=== PATIENT | female | born 1955 | race Caucasian/White ===

== ENCOUNTER 2017-11-09 22:58 | Inpatient (IN) | payer OTHER ==
[~2017-11-09] VITALS: Ht 160 cm; Wt 72.2 kg
[~2017-11-09 22:58] MED LIST: ERGO2000 PEG; ESCI20TA PEG; HYDR-3288 PO; LEVO112T2 PEG; LORA-474 PEG; OMEP40CA2 PEG; OXYC-392 PEG; XARE20TA PEG
--- NOTE | 2017-11-09 23:17 | PD ---
HPI Chief Complaint: BA Time Seen by Provider: 23:10 Travel History International Travel<30 days: No Contact w/Intl Traveler<30days: No Traveled to known affect area: No History of Present Illness HPI 62-year-old female with history of throat cancer, currently undergoing treatment , presents to emergency department under Maher act for psychiatric evaluation. Patient got into an argument with her . She has made threatening statements that she wants to kill has been. She has had this several times here in the emergency department. Patient reports chronic pain. She does have a PEG tube and trach in place. She denies suicidal ideations. She remained patently states that she wants to kill her . She does not report a plan. Denies illicit drug use. She has no acute other acute medical needs at this time. PFSH Past Medical History Hx Anticoagulant Therapy: Yes (XARELTO) Anxiety: Yes Depression: Yes Cancer: Yes (THROAT) Chemotherapy: Yes (6 MONTHS AGO) GERD: Yes Respiratory: Yes (TRACH) Immunizations Current: Yes Thyroid Disease: Yes Past Surgical History Abdominal Surgery: Yes (PEG TUBE) Cholecystectomy: Yes Endocrine Surgery: Yes (THYROID, PARATHYROID) Hysterectomy: Yes Tonsillectomy: Yes Other Surgery: Yes (TRACH, VOICE BOX) Social History Alcohol Use: No Tobacco Use: No Substance Use: No Allergies-Medications (Allergen,Severity, Reaction): Coded Allergies: Penicillins (Verified Allergy, Severe, 11/09/17) pentazocine (Verified Allergy, Severe, 11/09/17) Reported Meds & Prescriptions Reported Meds & Active Scripts Active [place] (Hydrocodone-Acetaminophen) 7.5-325 mg Tab 1 Tab PO Q6H PRN Reported Xanax (Alprazolam) 1 Mg Tab 1 Mg PO Q8H PRN Robinul Inj (Glycopyrrolate) 0.2 Mg/Ml Inj 1 Mg PEG Levothyroxine (Levothyroxine Sodium) 100 Mcg Tab 100 Mcg PO DAILY Cefazolin Inj (Cefazolin Sodium/Dextrose) 2 Gm/50 Ml Bagp 2 Gm IV Q8H Ativan (Lorazepam) 1 Mg Tab 1 Mg PEG Q8H PRN Oxycodone (Oxycodone HCl) 5 Mg Tab 5 Mg PEG BID PRN Vitamin D2 (Ergocalciferol) 2,000 Unit Tab 5,000 Units PEG DAILY Escitalopram (Escitalopram Oxalate) 20 Mg Tab 20 Mg PEG HS Omeprazole 40 Mg Cap 40 Mg PEG BID Xarelto (Rivaroxaban) 20 Mg Tab 20 Mg PEG DAILY Review of Systems Except as stated in HPI: all other systems reviewed are Neg Physical Exam Narrative GENERAL: Chronically ill-appearing female patient, in no acute distress. SKIN: Focused skin assessment warm/dry. Erythematous with scabbed Wounds over the anterior chest. HEAD: Atraumatic. Normocephalic. EYES: Pupils equal and round. No scleral icterus. No injection or drainage. ENT: No nasal bleeding or discharge. Mucous membranes pink and moist. NECK: Trachea midline. Tracheostomy in place. Coarse breath sounds. No JVD. CARDIOVASCULAR: Tachycardic rate and rhythm. RESPIRATORY: No accessory muscle use. Coarse to auscultation. Breath sounds equal bilaterally. Right upper chest port in place. GASTROINTESTINAL: Abdomen soft, non-tender, nondistended. Hepatic and splenic margins not palpable. PEG tube in place. MUSCULOSKELETAL: No obvious deformities. No clubbing. No cyanosis. No edema. NEUROLOGICAL: Awake and alert. No obvious cranial nerve deficits. Motor grossly within normal limits. Normal speech. Data Data Last Documented VS Vital Signs Date Time Temp Pulse Resp B/P (MAP) Pulse Ox O2 Delivery O2 Flow Rate FiO2 11/09/17 23:45 98 21 11/09/17 23:34 18 11/09/17 23:31 98.0 83 120/59 (79) Orders Orders Complete Blood Count With Diff (11/09/17 23:17) Basic Metabolic Panel (Bmp) (11/09/17 23:17) Psych Screen (11/09/17 23:17) Drug Screen, Random Urine (11/09/17 23:17) Alcohol (Ethanol) (11/09/17 23:17) Chest, Single Ap (11/10/17 ) Lorazepam (Ativan) (11/10/17 02:00) Oxycodone Liq (Roxicodone Intensol Liq) (11/10/17 02:30) Lorazepam (Ativan) (11/10/17 02:45) Lorazepam Inj (Ativan Inj) (11/10/17 02:45) Hydroxyzine Hcl (Atarax) (11/10/17 02:45) Diphenhydramine (Benadryl) (11/10/17 02:45) Diphenhydramine Inj (Benadryl Inj) (11/10/17 02:45) Diphenhydramine (Benadryl) (11/10/17 02:45) Diphenhydramine Inj (Benadryl Inj) (11/10/17 02:45) Trazodone (Desyrel) (11/10/17 02:45) Acetaminophen (Tylenol) (11/10/17 02:45) Magnesium Hydroxide Liq (Milk Of Magnesi (11/10/17 02:45) Al-Mag Hy-Si 40-40-4 Mg/Ml Liq (Mag-Al P (11/10/17 02:45) Nicotine 21 Mg Patch.24 Hr (Habitrol 21 (11/10/17 09:00) Remove Old Patch (11/10/17 21:00) Rivaroxaban (Xarelto) (11/10/17 09:00) Lansoprazole Odt (Prevacid Odt) (11/10/17 09:00) Ergocalciferol (Drisdol) (11/10/17 09:00) Escitalopram (Lexapro) (11/10/17 21:00) Levothyroxine (Synthroid) (11/10/17 07:00) Oxycodone (Roxicodone) (11/10/17 03:00) Admit Order (Ed Use Only) (11/10/17 02:54) Admit To Inpatient Psych (11/10/17 ) Vital Signs (Adult) GWEN.Q12H.E (11/10/17 02:54) Activity Oob Ad Deann (11/10/17 02:54) Level Of Observation (Psych) (11/10/17 02:54) Diet Regular Basic (11/10/17 Breakfast) Complete Blood Count With Diff (11/11/17 06:00) Basic Metabolic Panel (Bmp) (11/11/17 06:00) Thyroid Stimulating Hormone (11/11/17 06:00) Lipid Profile (11/11/17 06:00) Hemoglobin (Hgb) A1c (11/11/17 06:00) Consult Hospitalist (11/10/17 ) Labs Laboratory Tests Test 11/09/17 23:30 White Blood Count 6.1 TH/MM3 Red Blood Count 3.92 MIL/MM3 Hemoglobin 11.1 GM/DL Hematocrit 31.9 % Mean Corpuscular Volume 81.3 FL Mean Corpuscular Hemoglobin 28.3 PG Mean Corpuscular Hemoglobin Concent 34.8 % Red Cell Distribution Width 15.3 % Platelet Count 238 TH/MM3 Mean Platelet Volume 9.2 FL Neutrophils (%) (Auto) 60.9 % Lymphocytes (%) (Auto) 25.4 % Monocytes (%) (Auto) 9.5 % Eosinophils (%) (Auto) 3.2 % Basophils (%) (Auto) 1.0 % Neutrophils # (Auto) 3.7 TH/MM3 Lymphocytes # (Auto) 1.5 TH/MM3 Monocytes # (Auto) 0.6 TH/MM3 Eosinophils # (Auto) 0.2 TH/MM3 Basophils # (Auto) 0.1 TH/MM3 CBC Comment DIFF FINAL Differential Comment Blood Urea Nitrogen 14 MG/DL Creatinine 0.95 MG/DL Random Glucose 85 MG/DL Calcium Level 8.9 MG/DL Sodium Level 142 MEQ/L Potassium Level 3.3 MEQ/L Chloride Level 110 MEQ/L Carbon Dioxide Level 21.3 MEQ/L Anion Gap 11 MEQ/L Estimat Glomerular Filtration Rate 60 ML/MIN Urine Opiates Screen NEG Urine Barbiturates Screen NEG Urine Amphetamines Screen NEG Urine Benzodiazepines Screen POS Urine Cocaine Screen NEG Urine Cannabinoids Screen NEG Ethyl Alcohol Level LESS THAN 3 MG/DL MDM Medical Decision Making Medical Screen Exam Complete: Yes Emergency Medical Condition: Yes Medical Record Reviewed: Yes Differential Diagnosis Adjustment reaction disorder versus mood disorder versus personality disorder Narrative Course 62-year-old female presents to emergency department under Maher act for psychiatric evaluation. Patient appears without distress. She is obviously agitated. Patient does mouth words in I am able to communicate with her however she does not make any audible the waist due to a tracheostomy in place. Patient is treated for pain and anxiety. Lab work is without acute concern. She is medically cleared to undergo psychiatric screening for further evaluation and disposition. Mental health screening discussed with the patient. Psychiatric screen ordered. Diagnosis Primary Impression: Adjustment reaction Qualified Codes: F43.25 - Adjustment disorder with mixed disturbance of emotions and conduct Condition: Stable GraceNataliia phelps PIETRO Nov 09, 2017 23:17
[2017-11-09 23:31] VITALS: BP 120/59; PULSE 83; RESP 16; TEMP 98; O2SAT 100
[2017-11-09 23:35] LABS: AUTOMATED NEUTROPHIL # 3.7 TH/MM3 (1.8-7.7); BASOPHIL # 0.1 TH/MM3 (0-0.2); EOSINOPHIL # 0.2 TH/MM3 (0-0.4); EOSINOPHIL % 3.2 % (0.0-4.0); HEMATOCRIT 31.9 % (35.0-46.0); HEMOGLOBIN 11.1 GM/DL (11.6-15.3); LYMPH % 25.4 % (9.0-44.0); LYMPHOCYTE # 1.5 TH/MM3 (1.0-4.8); MEAN CELL VOLUME 81.3 FL (80.0-100.0); MEAN CORPUSCULAR HEMOGLOBIN 28.3 PG (27.0-34.0); MEAN CORPUSCULAR HGB CONC 34.8 % (32.0-36.0); MEAN PLATELET VOLUME 9.2 FL (7.0-11.0); MONO % 9.5 % (0.0-8.0); MONOCYTE # 0.6 TH/MM3 (0-0.9); NEUT % 60.9 % (16.0-70.0); PLATELET COUNT 238 TH/MM3 (150-450); RED BLOOD COUNT 3.92 MIL/MM3 (4.00-5.30); RED CELL DISTRIBUTION WIDTH 15.3 % (11.6-17.2); WHITE BLOOD COUNT 6.1 TH/MM3 (4.0-11.0)
[2017-11-09 23:45] VITALS: O2SAT 98
[2017-11-09 23:51] LABS: BICARBONATE 21.3 MEQ/L (21.0-32.0); BLOOD UREA NITROGEN 14 MG/DL (7-18); CALCIUM 8.9 MG/DL (8.5-10.1); CHLORIDE 110 MEQ/L (98-107); CREATININE 0.95 MG/DL (0.50-1.00); GLOMERULAR FILTRATION RATE 60 ML/MIN (>89); GLUCOSE,RANDOM 85 MG/DL (74-106); SODIUM (NA) 142 MEQ/L (136-145)
[2017-11-10] MEDS ORDERED: LEVO100T5 PO (00:19)
[2017-11-10] MEDS ORDERED: CEFA2SOL IV (00:19)
[2017-11-10] MEDS ORDERED: XANA1TAB2 PO (00:19)
[2017-11-10] MEDS ORDERED: [UNRECOGNIZED DRUG - CODE] PEG (00:19)
--- NOTE | 2017-11-10 00:59 | RADRPT ---
EXAM DATE/TIME: 11/10/2017 00:29 [place] COMPARISON: CHEST SINGLE AP, October 30, 2017, 14:08. INDICATIONS : Cough. MEDICAL HISTORY : Cardiovascular disease. SURGICAL HISTORY : Tracheostomy ENCOUNTER: Initial ACUITY: 1 day PAIN SCORE: 0/10 LOCATION: Bilateral chest FINDINGS: Single AP view of the chest. Right-sided [id number] remains in place. Chronic scarring at the righ t lung apex. The lungs are otherwise clear. Cardiomediastinal silhouette within normal limits. No ajay dence of pleural effusion or pneumothorax. CONCLUSION: No acute cardiopulmonary disease identified. Lanre Bender MD on November 10, 2017 at 0:57 Board Certified Radiologist. This report was verified electronically.
[2017-11-10] MEDS ORDERED: LORazepam 1 MG TAB PO ONE (02:00)
[2017-11-10] MEDS ORDERED: oxyCODONE HCL ORAL CONC 5 MG/0.25 ML SYRINGE PO ONE (02:30)
[2017-11-10] MEDS ORDERED: LORazepam 2 MG/ML VIAL IM PRN (02:45)
[2017-11-10] MEDS ORDERED: diphenhydrAMINE HCL 50 MG/ML VIAL IM PRN (02:45)
[2017-11-10] MEDS ORDERED: diphenhydrAMINE HCL 50 MG/ML VIAL - HS PRN IM (02:45)
[2017-11-10] MEDS ORDERED: ALUMINUM/MAGNESIUM/SIMETH 30 ML CUP PO PRN (02:45)
[2017-11-10] MEDS ORDERED: diphenhydrAMINE HCL 50 MG CAP - HS PRN PO (02:45)
[2017-11-10] MEDS ORDERED: hydrOXYzine HCL 50 MG TAB PO PRN (02:45)
[2017-11-10] MEDS ORDERED: ACETAMINOPHEN 325 MG TAB PO PRN (02:45)
[2017-11-10] MEDS ORDERED: diphenhydrAMINE HCL 50 MG CAP PO PRN (02:45)
[2017-11-10] MEDS ORDERED: MAGNESIUM HYDROXIDE SUSP 30 ML CUP PO PRN (02:45)
[2017-11-10 03:30] VITALS: BP 125/65; PULSE 62; TEMP 98.2; O2SAT 97
[2017-11-10 05:44] VITALS: BP 111/68; PULSE 78; RESP 18; TEMP 98.1; O2SAT 94
[2017-11-10] MEDS ORDERED: LEVOTHYROXINE SODIUM 100 MCG TAB PO SCH (07:00)
[2017-11-10] MEDS ORDERED: ERGOCALCIFEROL (VIT D2) 50,000 UNIT CAP PEG SCH (09:00)
[2017-11-10] MEDS ORDERED: RIVAROXABAN 20 MG TAB PEG SCH (09:00)
[2017-11-10] MEDS: LANSOPRAZOLE SOLUTAB 30 MG TAB PEG SCH ×2 (09:00→20:01)
[2017-11-10] MEDS: NICOTINE 21 MG/24 HR PATCH T-DERMAL SCH (09:00)
[2017-11-10] MEDS ORDERED: RESP: ALBUTEROL 2.5 MG/IPRATROPIUM 0.5 MG NEB (PRN) NEB (12:00)
[2017-11-10] MEDS: RESP: ALBUTEROL 2.5 MG/IPRATROPIUM 0.5 MG NEB (SCH) NEB ×3 (12:00→19:53)
[2017-11-10] MEDS ORDERED: LORazepam 1 MG TAB PEG PRN (12:15)
[2017-11-10] MEDS ORDERED: ALPRAZolam 1 MG TAB PO PRN (12:15)
[2017-11-10] MEDS ORDERED: ceFAZolin 2 GM/50 ML BAG IV SCH (12:15)
--- NOTE | 2017-11-10 13:01 | HHI.HP ---
Provisional Diagnosis Admission Date Nov 10, 2017 at 02:59 [place] I. Adjustment disorder with mixed disturbance of emotion and conduct Certification of Person's Competence To Provide Express and Informed Consent I have personally examined Jluis Simon , a person being served at [facility] on, Nov 10, 2017 12:54. Express and informed consent means consent voluntarily given in writing, by a competent person, after sufficient explanation and disclosure of the subject matter involved to enable the person to make a knowing and willful decision without any element of force, fraud, deceit, duress, or other form of constraint or coercion. This person is 18 years of age or older, is not now known to be incompetent to consent to treatment with a guardian advocate, and does not have a health care surrogate or proxy currently making medical treatment decisions. I have found this person to be one of the following: [x] Competent to provide express and informed consent, as defined above, for voluntary admission to this facility and is competent to provide express and informed consent for treatment. He/she has the consistent capacity to make well reasoned, willful, and knowing decisions concerning his or her medical or mental health treatment. The person fully and consistently understands the purpose of the admission for examination/placement and is fully capable of personally exercising all rights assured [place] Incompetent to provide express and informed consent to voluntary admission, and this is incompetent to provide express and informed consent to treatment. The person must be transferred to involuntary status and a petition for a guardian advocate filed with the Circuit Court. [] Refusing to provide express and informed consent to voluntary admission but is competent to provide express and informed consent for treatment. The person must be discharged or transferred to involuntary status. Form shall be completed within 24 hours of a person's arrival at the receiving facility and filed in the clinical record of each person: 1. Admitted on a voluntary basis 2. Permitted to provide express and informed consent to his/her own treatment 3. Allowed to transfer from involuntary to voluntary status 4. Prior to permitting a person to consent to his or her own treatment after having been previously found incompetent to consent to treatment. History of Present Illness Capacity: Has Capacity HPI 62-year-old female inappropriately Maher acted by police after allegedly making threats to kill her . Patient recently underwent treatment for throat cancer. She has a tracheostomy and a plugged in her throat, with increasing secretions and possible infection. reportedly wanted the patient to come to the hospital yesterday and it patient did not want to. reportedly told her to "hit the fuck out" of their house. Patient reportedly told him "Fucks you". She may have told him she felt like killing him but she is basically unable to speak because of her tracheostomy. called the police who handcuffed her, Maher acted her while she was sitting watching television. At this time she denies any suicidal or homicidal ideation, plan or intent. She has no psychotic symptoms and no cognitive deficits. She is verbally sherita for safety. She is willing to be treated by the physical medicine doctors. She does not meet criteria for Maher act and she was allowed by this physician to sign in voluntarily. Review of Systems Except as stated in HPI: all other systems reviewed are Neg Past Psych History Psychological trauma history Denied Violence risk - others (6 mos) Minimal Violence risk - self (6 mos) Minimal Substance Abuse History Drugs/Alcohol past 12 months Denied Past Family Social History Coded Allergies: Penicillins (Verified Allergy, Severe, 11/09/17) pentazocine (Verified Allergy, Severe, 11/09/17) Active Scripts Hydrocodone-Acetaminophen ([place]) 7.5-325 mg Tab, 1 TAB PO Q6H Y for PAIN, #15 TAB 0 Refills Prov:Dion Parisi MD 10/30/17 Reported Medications Alprazolam (Xanax) 1 Mg Tab, 1 MG PO Q8H Y for ANXIETY, TAB 0 Refills 11/10/17 Glycopyrrolate Inj (Robinul Inj) 0.2 Mg/Ml Inj, 1 MG PEG 11/10/17 Levothyroxine (Levothyroxine) 100 Mcg Tab, 100 MCG PO DAILY for Thyroid, #30 TAB 0 Refills 11/10/17 Cefazolin Inj (Cefazolin Inj) 2 Gm/50 Ml Bagp, 2 GM IV Q8H for Infection, BAG 0 Refills 11/10/17 Lorazepam (Ativan) 1 Mg Tab, 1 MG PEG Q8H Y for ANXIETY AND/OR AGITATION, TAB 0 Refills 10/30/17 Oxycodone (Oxycodone) 5 Mg Tab, 5 MG PEG BID Y for PAIN, TAB 0 Refills 10/30/17 Ergocalciferol (Vitamin D2) 2,000 Unit Tab, 5000 UNITS PEG DAILY for Nutritional Supplement, TAB 0 Refills 10/30/17 Escitalopram (Escitalopram) 20 Mg Tab, 20 MG PEG HS, #30 TAB 0 Refills 10/30/17 Omeprazole (Omeprazole) 40 Mg Cap, 40 MG PEG BID, #30 CAP 0 Refills 10/30/17 Rivaroxaban (Xarelto) 20 Mg Tab, 20 MG PEG DAILY for Blood Clot Prevention, TAB 0 Refills 10/30/17 Discontinued Reported Medications Levothyroxine (Levothyroxine) 112 Mcg Tab, 112 MCG PEG DAILY for Thyroid, #30 TAB 0 Refills 10/30/17 Current Medications Medications (Trade) Dose Ordered Sig/Abena Route Start Time Stop Time Status Last Admin (Ativan) 1 mg Q6H PRN PO 11/10/17 02:45 (Ativan Inj) 1 mg Q6H PRN IM 11/10/17 02:45 (Atarax) 50 mg Q6H PRN PO 11/10/17 02:45 (Benadryl) 50 mg Q6H PRN PO 11/10/17 02:45 (Benadryl Inj) 50 mg Q6H PRN IM 11/10/17 02:45 (Benadryl) 50 mg HS PRN PO 11/10/17 02:45 (Benadryl Inj) 50 mg HS PRN IM 11/10/17 02:45 (Desyrel) 50 mg HS PRN PO 11/10/17 02:45 (Tylenol) 650 mg Q4H PRN PO 11/10/17 02:45 (Milk Of Magnesia Liq) 30 ml DAILY PRN PO 11/10/17 02:45 (Mag-Al Plus Susp Liq) 30 ml Q6H PRN PO 11/10/17 02:45 (Habitrol 21 Mg Patch.24 Hr) 1 patch DAILY T-DERMAL 11/10/17 09:00 Miscellaneous Information 1 HS T-DERMAL 11/10/17 21:00 (Prevacid Odt) 30 mg BID PEG 11/10/17 09:00 (Duoneb Neb) 1 ampule Q4HR WHILE AWAKE NEB NEB 11/10/17 12:00 (Duoneb Neb) 1 ampule Q2HR NEB PRN NEB 11/10/17 12:00 (Lexapro) 20 mg HS PEG 11/10/17 21:00 ([place] 7.5-325 Mg) 1 tab Q6H PRN PO 11/10/17 12:15 (Synthroid) 100 mcg DAILY@0600 PO 11/11/17 06:00 (Roxicodone) 5 mg BID PRN PEG 11/10/17 12:15 (Xarelto) 20 mg DAILY PEG 11/11/17 09:00 (Calciferol Liq) 5,000 units DAILY PEG 11/11/17 09:00 (Levsin Liq) 0.125 mg Q4H PRN PO 11/10/17 12:15 Family Psych History Unable to answer Social History Difficulty answering questions. Patient does not have a history of alcohol or substance abuse. She is and she and her have lived in the same home for years. Patient's Strengths (min. 2) Cognition intact and patient has access to healthcare. Physical Exam GENERAL: SKIN: Warm and dry. HEAD: Normocephalic. EYES: No scleral icterus. No injection or drainage. NECK: Supple, trachea midline. No JVD or lymphadenopathy. CARDIOVASCULAR: Regular rate and rhythm without murmurs, gallops, or rubs. RESPIRATORY: Breath sounds equal bilaterally. No accessory muscle use. GASTROINTESTINAL: Abdomen soft, non-tender, nondistended. MUSCULOSKELETAL: No cyanosis, or edema. BACK: Nontender without obvious deformity. No CVA tenderness. Vital Signs Vital Signs Date Time Temp Pulse Resp B/P (MAP) Pulse Ox O2 Delivery O2 Flow Rate FiO2 11/10/17 05:44 98.1 78 18 111/68 (82) 94 11/09/17 23:45 21 Lab Results Test 11/09/17 23:30 White Blood Count 6.1 TH/MM3 Red Blood Count 3.92 MIL/MM3 Hemoglobin 11.1 GM/DL Hematocrit 31.9 % Mean Corpuscular Volume 81.3 FL Mean Corpuscular Hemoglobin 28.3 PG Mean Corpuscular Hemoglobin Concent 34.8 % Red Cell Distribution Width 15.3 % Platelet Count 238 TH/MM3 Mean Platelet Volume 9.2 FL Neutrophils (%) (Auto) 60.9 % Lymphocytes (%) (Auto) 25.4 % Monocytes (%) (Auto) 9.5 % Eosinophils (%) (Auto) 3.2 % Basophils (%) (Auto) 1.0 % Neutrophils # (Auto) 3.7 TH/MM3 Lymphocytes # (Auto) 1.5 TH/MM3 Monocytes # (Auto) 0.6 TH/MM3 Eosinophils # (Auto) 0.2 TH/MM3 Basophils # (Auto) 0.1 TH/MM3 CBC Comment DIFF FINAL Differential Comment Blood Urea Nitrogen 14 MG/DL Creatinine 0.95 MG/DL Random Glucose 85 MG/DL Calcium Level 8.9 MG/DL Sodium Level 142 MEQ/L Potassium Level 3.3 MEQ/L Chloride Level 110 MEQ/L Carbon Dioxide Level 21.3 MEQ/L Anion Gap 11 MEQ/L Estimat Glomerular Filtration Rate 60 ML/MIN Urine Opiates Screen NEG Urine Barbiturates Screen NEG Urine Amphetamines Screen NEG Urine Benzodiazepines Screen POS Urine Cocaine Screen NEG Urine Cannabinoids Screen NEG Ethyl Alcohol Level LESS THAN 3 MG/DL Mental Status Examination Appearance: Appropriate Consciousness: Alert Orientation: x4 Motor Activity: Normal gait Speech: Other Language: Adequate Fund of Knowledge: Adequate Attention and Concentration: Adequate Memory: Unremarkable Mood: Appropriate Affect: Appropriate Thought Process & Associations: Intact Thought Content: Appropriate Hallucination Type: None Delusion Type: None Suicidal Ideation: No Suicidal Plan: No Suicidal Intention: No Homicidal Ideation: No Homicidal Plan: No Homicidal Intention: No Insight: Adequate Judgment: Adequate Assessment & Plan Problem List: (1) Adjustment disorder with mixed disturbance of emotions and conduct ICD Codes: F43.25 - Adjustment disorder with mixed disturbance of emotions and conduct Assessment & Plan Estimated LOS: days. Patient status to be changed from Maher act voluntary. She may be released from psychiatric services when she is medically cleared. Brett Higginbotham MD Nov 10, 2017 13:00
[2017-11-10] MEDS: HYOSCYAMINE SOLN 0.125 MG/ML 15 ML BTL PO PRN (14:39)
--- NOTE | 2017-11-10 15:14 | PD.CONS ---
HPI Service [facility] Hospitalists Consult Requested By Dr Santiago psych Reason for Consult medical management Primary Care Physician Unknown Diagnoses: History of Present Illness 62-year-old female with history of throat cancer, finished chemo 6 month ago, with chronic respiratory failure has trach on, DVT on xarelto, hypothyroidism , GERD, presents to emergency department under Maher act for psychiatric evaluation. Patient got into an argument with her . She has made threatening statements that she wants to kill has been. She has had this several times here in the emergency department. Patient reports chronic pain. She does have a PEG tube and trach in place. She denies suicidal ideations. She remained patently states that she wants to kill her . She does not report a plan. Denies illicit drug use. She has no acute other acute medical needs at this time. She is very pleasant ayt this time. Kamitierra shayne noted with some secretions in the morning but able to lear secretions. No sob, cp, n/v/d/ c. Patient says she has been ecently to [facility] and was discharged home on IV abx cefazolin Q8HRS for blood infection with staph aureus. Will obtain records. Review of Systems Except as stated in HPI: all other systems reviewed are Neg Past Family Social History Allergies: Coded Allergies: Penicillins (Verified Allergy, Severe, 11/09/17) pentazocine (Verified Allergy, Severe, 11/09/17) Past Medical History Throat cancer, with chronic respiratory failure with trach Hypothyroidism GERD DVT on xarelto Past Surgical History PEG TUBE THYROID, PARATHYROID SURGERY TRACHEOSTOMY, VOICE BOX Reported Medications Reported Meds & Active Scripts Active [place] (Hydrocodone-Acetaminophen) 7.5-325 mg Tab 1 Tab PO Q6H PRN Reported Xanax (Alprazolam) 1 Mg Tab 1 Mg PO Q8H PRN Robinul Inj (Glycopyrrolate) 0.2 Mg/Ml Inj 1 Mg PEG Levothyroxine (Levothyroxine Sodium) 100 Mcg Tab 100 Mcg PO DAILY Cefazolin Inj (Cefazolin Sodium/Dextrose) 2 Gm/50 Ml Bagp 2 Gm IV Q8H Ativan (Lorazepam) 1 Mg Tab 1 Mg PEG Q8H PRN Oxycodone (Oxycodone HCl) 5 Mg Tab 5 Mg PEG BID PRN Vitamin D2 (Ergocalciferol) 2,000 Unit Tab 5,000 Units PEG DAILY Escitalopram (Escitalopram Oxalate) 20 Mg Tab 20 Mg PEG HS Omeprazole 40 Mg Cap 40 Mg PEG BID Xarelto (Rivaroxaban) 20 Mg Tab 20 Mg PEG DAILY Family History Reviewed. Healthy family, no cancer in her family Social History DENEIS ETOH USE, TOBACCO USE OR ILLICIT DRUG USE Physical Exam Vital Signs Vital Signs Date Time Temp Pulse Resp B/P (MAP) Pulse Ox O2 Delivery O2 Flow Rate FiO2 11/10/17 05:44 98.1 78 18 111/68 (82) 94 11/10/17 03:30 98.2 62 125/65 (85) 97 11/09/17 23:45 98 21 11/09/17 23:34 18 11/09/17 23:31 98.0 83 16 120/59 (79) 100 Physical Exam GENERAL: Chronically ill-appearing female patient, in no acute distress. SKIN: Erythematous with scabbed Wounds over the anterior chest. HEAD: Atraumatic. Normocephalic. No temporal or scalp tenderness. EYES: Pupils equal round and reactive. Extraocular motions intact. No scleral icterus. No injection or drainage. ENT: Nose without bleeding, purulent drainage or septal hematoma. Throat without erythema, tonsillar hypertrophy or exudate. Uvula midline. Airway patent. NECK: Trach in place. No JVD or lymphadenopathy. Supple, nontender, no meningeal signs. CARDIOVASCULAR: Regular rate and rhythm without murmurs, gallops, or rubs. RESPIRATORY: trach in place Clear to auscultation. Breath sounds equal bilaterally. No wheezes, rales, or rhonchi. GASTROINTESTINAL: Abdomen soft, non-tender, nondistended. No hepato-splenomegaly , or palpable masses. No guarding. MUSCULOSKELETAL: Extremities without clubbing, cyanosis, or edema. No joint tenderness, effusion, or edema noted. No calf tenderness. Negative Homans sign bilaterally. NEUROLOGICAL: Awake and alert. Cranial nerves II through XII intact. Motor and sensory grossly within normal limits. Five out of 5 muscle strength in all muscle groups. Abnormal speech. Laboratory Laboratory Tests Test 11/09/17 23:30 White Blood Count 6.1 Red Blood Count 3.92 Hemoglobin 11.1 Hematocrit 31.9 Mean Corpuscular Volume 81.3 Mean Corpuscular Hemoglobin 28.3 Mean Corpuscular Hemoglobin Concent 34.8 Red Cell Distribution Width 15.3 Platelet Count 238 Mean Platelet Volume 9.2 Neutrophils (%) (Auto) 60.9 Lymphocytes (%) (Auto) 25.4 Monocytes (%) (Auto) 9.5 Eosinophils (%) (Auto) 3.2 Basophils (%) (Auto) 1.0 Neutrophils # (Auto) 3.7 Lymphocytes # (Auto) 1.5 Monocytes # (Auto) 0.6 Eosinophils # (Auto) 0.2 Basophils # (Auto) 0.1 CBC Comment DIFF FINAL Differential Comment Blood Urea Nitrogen 14 Creatinine 0.95 Random Glucose 85 Calcium Level 8.9 Sodium Level 142 Potassium Level 3.3 Chloride Level 110 Carbon Dioxide Level 21.3 Anion Gap 11 Estimat Glomerular Filtration Rate 60 Urine Opiates Screen NEG Urine Barbiturates Screen NEG Urine Amphetamines Screen NEG Urine Benzodiazepines Screen POS Urine Cocaine Screen NEG Urine Cannabinoids Screen NEG Ethyl Alcohol Level LESS THAN 3 Result Diagram: 11/09/17 2330 11/09/17 2330 Imaging Last Impressions Chest X-Ray 11/10/17 0000 Signed Impressions: Service Date/Time: Friday, November 10, 2017 00:29 - CONCLUSION: No acute cardiopulmonary disease identified. Lanre Bender MD Assessment and Plan Assessment and Plan Adjustment disorder. BA. Management per psych Throat carcinoma with trach undergoing chemo last chemo was 6 month ago Chronic respiratory failure on trach Trach care Duonebs as need Levsin prn if increased secretions Bacteremia with staph aureus per patient , on cefazolin Q8hrsm started at [facility] on 11/07/17. Continue cefazolin IV . Will obtain records GERD continue PPI DVT right leg on xarelto Hypothyroidism: continue levothyroxine Continue home meds as appropriate DVt ppx on xarelto Discussed Condition With pt, nurse Shannon Cheung MD Nov 10, 2017 15:14
[2017-11-10 18:00] VITALS: BP 106/58; PULSE 67; RESP 18; TEMP 98.6; O2SAT 96
[2017-11-10] MEDS: ceFAZolin 2 GM PREMIX 50 ML IV SCH (19:57)
[2017-11-10] MEDS: ESCITALOPRAM OXALATE 20 MG TAB PEG SCH (20:01)
[2017-11-10] MEDS: REMOVE OLD NICOTINE PATCH T-DERMAL SCH (20:10)
[2017-11-10] MEDS ORDERED: ESCITALOPRAM OXALATE 20 MG TAB PEG SCH (21:00)
[2017-11-10] MEDS ORDERED: NON-FORMULARY DRUG (Omeprazole 40 MG) PEG SCH (21:00)
[2017-11-10] MEDS: LORazepam 1 MG TAB PO PRN (23:10)
[2017-11-11] MEDS: ceFAZolin 2 GM PREMIX 50 ML IV SCH ×3 (03:10→17:40)
[2017-11-11] MEDS: LEVOTHYROXINE SODIUM 100 MCG TAB PO SCH (05:55)
[2017-11-11 06:00] LABS: AUTOMATED NEUTROPHIL # 2.3 TH/MM3 (1.8-7.7); BASOPHIL % 0.8 % (0.0-2.0); EOSINOPHIL # 0.3 TH/MM3 (0-0.4); EOSINOPHIL % 7.4 % (0.0-4.0); HEMOGLOBIN 9.8 GM/DL (11.6-15.3); LYMPH % 20.1 % (9.0-44.0); LYMPHOCYTE # 0.8 TH/MM3 (1.0-4.8); MEAN CORPUSCULAR HEMOGLOBIN 27.4 PG (27.0-34.0); MEAN CORPUSCULAR HGB CONC 33.7 % (32.0-36.0); MEAN PLATELET VOLUME 8.9 FL (7.0-11.0); MONO % 11.8 % (0.0-8.0); MONOCYTE # 0.4 TH/MM3 (0-0.9); NEUT % 59.9 % (16.0-70.0); PLATELET COUNT 189 TH/MM3 (150-450); RED BLOOD COUNT 3.57 MIL/MM3 (4.00-5.30); RED CELL DISTRIBUTION WIDTH 15.6 % (11.6-17.2); WHITE BLOOD COUNT 3.8 TH/MM3 (4.0-11.0)
[2017-11-11] MEDS: ACETAMINOPHEN/HYDROcodone 325 MG/7.5 MG TAB PO PRN ×2 (06:03→18:04)
[2017-11-11 06:23] LABS: BICARBONATE 23.8 MEQ/L (21.0-32.0); BLOOD UREA NITROGEN 10 MG/DL (7-18); CALCIUM 8.5 MG/DL (8.5-10.1); CHLORIDE 111 MEQ/L (98-107); CHOLESTEROL 147 MG/DL (120-200); GLOMERULAR FILTRATION RATE 102 ML/MIN (>89); GLUCOSE,RANDOM 97 MG/DL (74-106); SODIUM (NA) 143 MEQ/L (136-145)
[2017-11-11 06:32] LABS: CHOLESTEROL/ HDL RATIO 4.53 RATIO; HDL CHOLESTEROL 32.4 MG/DL (40.0-60.0); LDL CHOLESTEROL 95 MG/DL (0-99); TRIGLYCERIDES 96 MG/DL (42-150)
[2017-11-11 07:10] VITALS: BP 107/55; PULSE 67; RESP 18; TEMP 98; O2SAT 97
[2017-11-11] MEDS: RESP: ALBUTEROL 2.5 MG/IPRATROPIUM 0.5 MG NEB (SCH) NEB ×4 (08:07→20:18)
[2017-11-11] MEDS: ERGOCALCIFEROL (VIT D2) 8,000 UNITS/ML 60 ML BTL PEG SCH (09:00)
[2017-11-11] MEDS: LANSOPRAZOLE SOLUTAB 30 MG TAB PEG SCH ×2 (09:00→20:26)
[2017-11-11] MEDS: RIVAROXABAN 20 MG TAB PEG SCH (09:00)
[2017-11-11] MEDS: NICOTINE 21 MG/24 HR PATCH T-DERMAL SCH (09:00)
--- NOTE | 2017-11-11 09:41 | HHI.PR ---
Subjective Remarks 62-year-old female with history of throat cancer, finished chemo 6 month ago, with chronic respiratory failure has trach IN PLACE, DVT on xarelto, hypothyroidism, GERD, presents to emergency department under Maher act for psychiatric evaluation. Patient got into an argument with her . She has made threatening statements that she wants to kill . She has had this several times here in the emergency department. Patient reports chronic pain. She does have a PEG tube and trach in place. She denies suicidal ideations. She remained patently states that she wants to kill her . She does not report a plan. Denies illicit drug use. She has no acute other acute medical needs at this time. She is very pleasant at this time. Patient was noted with some secretions in the morning but able to Clear secretions. No sob, cp, n/v/d/c. Patient says she has been Recently to [facility] and was discharged home on IV abx cefazolin Q8HRS for blood infection with staph aureus. Will obtain records. 11-11 NO NEW COMPLAINTS REMAINS ON CEFAZOLIN Q8HRS Objective Vitals Vital Signs Date Time Temp Pulse Resp B/P (MAP) Pulse Ox O2 Delivery O2 Flow Rate FiO2 11/11/17 07:10 98.0 67 18 107/55 (72) 97 11/10/17 18:00 98.6 67 18 106/58 (74) 96 I/O 11/10/17 11/10/17 11/10/17 11/11/17 11/11/17 11/11/17 07:00 15:00 23:00 07:00 15:00 23:00 Intake Total 240 ml 100 ml Balance 240 ml 100 ml Intake Oral 240 ml 100 ml # Voids 6 2 # Bowel Movements 1 Result Diagram: 11/11/17 0540 11/11/17 0540 Other Results Laboratory Tests Test 11/09/17 23:30 11/11/17 05:40 White Blood Count 6.1 TH/MM3 3.8 TH/MM3 Red Blood Count 3.92 MIL/MM3 3.57 MIL/MM3 Hemoglobin 11.1 GM/DL 9.8 GM/DL Hematocrit 31.9 % 29.0 % Mean Corpuscular Volume 81.3 FL 81.0 FL Mean Corpuscular Hemoglobin 28.3 PG 27.4 PG Mean Corpuscular Hemoglobin Concent 34.8 % 33.7 % Red Cell Distribution Width 15.3 % 15.6 % Platelet Count 238 TH/MM3 189 TH/MM3 Mean Platelet Volume 9.2 FL 8.9 FL Neutrophils (%) (Auto) 60.9 % 59.9 % Lymphocytes (%) (Auto) 25.4 % 20.1 % Monocytes (%) (Auto) 9.5 % 11.8 % Eosinophils (%) (Auto) 3.2 % 7.4 % Basophils (%) (Auto) 1.0 % 0.8 % Neutrophils # (Auto) 3.7 TH/MM3 2.3 TH/MM3 Lymphocytes # (Auto) 1.5 TH/MM3 0.8 TH/MM3 Monocytes # (Auto) 0.6 TH/MM3 0.4 TH/MM3 Eosinophils # (Auto) 0.2 TH/MM3 0.3 TH/MM3 Basophils # (Auto) 0.1 TH/MM3 0.0 TH/MM3 CBC Comment DIFF FINAL DIFF FINAL Differential Comment Blood Urea Nitrogen 14 MG/DL 10 MG/DL Creatinine 0.95 MG/DL 0.60 MG/DL Random Glucose 85 MG/DL 97 MG/DL Calcium Level 8.9 MG/DL 8.5 MG/DL Sodium Level 142 MEQ/L 143 MEQ/L Potassium Level 3.3 MEQ/L 3.6 MEQ/L Chloride Level 110 MEQ/L 111 MEQ/L Carbon Dioxide Level 21.3 MEQ/L 23.8 MEQ/L Anion Gap 11 MEQ/L 8 MEQ/L Estimat Glomerular Filtration Rate 60 ML/MIN 102 ML/MIN Urine Opiates Screen NEG Urine Barbiturates Screen NEG Urine Amphetamines Screen NEG Urine Benzodiazepines Screen POS Urine Cocaine Screen NEG Urine Cannabinoids Screen NEG Ethyl Alcohol Level LESS THAN 3 MG/DL Triglycerides Level 96 MG/DL Cholesterol Level 147 MG/DL LDL Cholesterol 95 MG/DL HDL Cholesterol 32.4 MG/DL Cholesterol/HDL Ratio 4.53 RATIO Thyroid Stimulating Hormone 3rd Gen 0.055 uIU/ML Imaging Last Impressions Chest X-Ray 11/10/17 0000 Signed Impressions: Service Date/Time: Friday, November 10, 2017 00:29 - CONCLUSION: No acute cardiopulmonary disease identified. Lanre Bender MD Objective Remarks GENERAL: AWAKE ALERT NO CURRENT COMPLAINTS SKIN: Warm and dry. HEAD: Atraumatic. Normocephalic. EYES: Pupils equal and round. No scleral icterus. No injection or drainage. ENT: No nasal bleeding or discharge. Mucous membranes pink and moist. NECK: Trachea midline. No JVD. TRACHEOSTOMY CARDIOVASCULAR: Regular rate and rhythm. S1, S2 NO S3 OR S4 RESPIRATORY: No accessory muscle use. COARSE BS BL. Breath sounds equal bilaterally. GASTROINTESTINAL: Abdomen soft, non-tender, nondistended. Hepatic and splenic margins not palpable. PEG MUSCULOSKELETAL: Extremities without clubbing, cyanosis, or edema. No obvious deformities. NEUROLOGICAL: Awake and alert. No obvious cranial nerve deficits. Motor grossly within normal limits. Five out of 5 muscle strength in the arms and legs. Normal speech. PSYCHIATRIC: INAppropriate mood and affect; insight and judgment ABnormal. Medications and IVs Current Medications Lorazepam (Ativan) 1 mg ONCE ONCE PO Last administered on 11/10/17at 03:03; Start 11/10/17 at 02:00; Stop 11/10/17 at 02:01; Status DC Oxycodone HCl (Roxicodone Intensol Liq) 5 mg ONCE ONCE PO ; Start 11/10/17 at 02 :30; Stop 11/10/17 at 02:53; Status DC Lorazepam (Ativan) 1 mg Q6H PRN PO MODERATE TO SEVERE ANXIETY Last administered on 11/10/17at 23:10; Start 11/10/17 at 02:45 Lorazepam (Ativan Inj) 1 mg Q6H PRN IM MODERATE TO SEVERE ANXIETY; Start at 02:45 Hydroxyzine HCl (Atarax) 50 mg Q6H PRN PO ANXIETY; Start 11/10/17 at 02:45 Diphenhydramine HCl (Benadryl) 50 mg Q6H PRN PO MILD ANXIETY, EPS; Start at 02:45 Diphenhydramine HCl (Benadryl Inj) 50 mg Q6H PRN IM MILD ANXIETY, EPS; Start at 02:45 Diphenhydramine HCl (Benadryl) 50 mg HS PRN PO INSOMNIA; Start 11/10/17 at 02:45 Diphenhydramine HCl (Benadryl Inj) 50 mg HS PRN IM INSOMNIA; Start 11/10/17 at 02:45 Trazodone HCl (Desyrel) 50 mg HS PRN PO INSOMNIA; Start 11/10/17 at 02:45 Acetaminophen (Tylenol) 650 mg Q4H PRN PO FEVER, MILD CONNELL, MILD PAIN OF 1; Start 11/10/17 at 02:45 Magnesium Hydroxide (Milk Of Magnesia Liq) 30 ml DAILY PRN PO CONSTIPATION; Start 11/10/17 at 02:45 Al Hydrox/Mg Hydrox/Simethicone (Mag-Al Plus Susp Liq) 30 ml Q6H PRN PO DYSPEPSIA; Start 11/10/17 at 02:45 Nicotine (Habitrol 21 Mg Patch.24 Hr) 1 patch DAILY T-DERMAL ; Start 11/10/17 at 09:00 Miscellaneous Information 1 HS T-DERMAL ; Start 11/10/17 at 21:00 Rivaroxaban (Xarelto) 20 mg DAILY PEG ; Start 11/10/17 at 09:00; Stop 11/10/17 at 12:23; Status DC Lansoprazole (Prevacid Odt) 30 mg BID PEG Last administered on 11/10/17at 20:01; Start 11/10/17 at 09:00 Ergocalciferol (Drisdol) 5,000 units DAILY PEG ; Start 11/10/17 at 09:00; Stop at 12:26; Status DC Escitalopram Oxalate (Lexapro) 20 mg HS PEG ; Start 11/10/17 at 21:00; Stop at 21:00; Status DC Levothyroxine Sodium (Synthroid) 100 mcg DAILY@0700 PO Last administered on 11/10at 07:00; Start 11/10/17 at 07:00; Stop 11/10/17 at 12:25; Status DC Oxycodone HCl (Roxicodone) 5 mg ONCE ONCE PEG Last administered on 11/10/17at 03 :04; Start 11/10/17 at 03:00; Stop 11/10/17 at 03:01; Status DC Albuterol/ Ipratropium (Duoneb Neb) 1 ampule Q4HR WHILE AWAKE NEB NEB Last administered on 11/11/17at 08:07; Start 11/10/17 at 12:00 Albuterol/ Ipratropium (Duoneb Neb) 1 ampule Q2HR NEB PRN NEB SOB/WHEEZING; Start 11/10/17 at 12:00 Alprazolam (Xanax) 1 mg Q8H PRN PO ANXIETY; Start 11/10/17 at 12:15; Stop at 12:49; Status DC Cefazolin Sodium/ Dextrose (Ancef 2 Gm Premix) 2 gm Q8H IV ; Start 11/10/17 at 12 :15; Stop 11/10/17 at 12:51; Status DC Escitalopram Oxalate (Lexapro) 20 mg HS PEG Last administered on 11/10/17at 20:01 ; Start 11/10/17 at 21:00 Acetaminophen/ Hydrocodone Bitart ([place] 7.5-325 Mg) 1 tab Q6H PRN PO PAIN 5- 10 Last administered on 11/11/17at 06:03; Start 11/10/17 at 12:15 Levothyroxine Sodium (Synthroid) 100 mcg DAILY@0600 PO Last administered on 11/11at 05:55; Start 11/11/17 at 06:00 Lorazepam (Ativan) 1 mg Q8H PRN PEG ANXIETY AND/OR AGITATION; Start 11/10/17 at 12:15; Stop 11/10/17 at 12:49; Status DC Oxycodone HCl (Roxicodone) 5 mg BID PRN PEG PAIN 2-4 Last administered on at 23:10; Start 11/10/17 at 12:15 Rivaroxaban (Xarelto) 20 mg DAILY PEG ; Start 11/11/17 at 09:00 Ergocalciferol (Calciferol Liq) 5,000 units DAILY PEG ; Start 11/11/17 at 09:00 Non-Formulary Medication 40 mg BID PEG ; Start 11/10/17 at 21:00; Stop 11/10/17 at 21:00; Status DC Hyoscyamine Sulfate (Levsin Liq) 0.125 mg Q4H PRN PO secretions Last administered on 11/10/17at 14:39; Start 11/10/17 at 12:15 Cefazolin Sodium/ Dextrose 50 ml @ 100 mls/hr Q8H IV Last administered on at 03:10; Start 11/10/17 at 18:00 A/P Assessment and Plan Adjustment disorder. BA. Management per psych Throat carcinoma with trach undergoing chemo last chemo was 6 month ago Chronic respiratory failure on trach Trach care Duonebs as need Levsin prn if increased secretions Bacteremia with staph aureus per patient , on cefazolin Q8hrsm started at [facility] on 11/07/17. Continue cefazolin IV . Will obtain records GERD continue PPI DVT right leg on xarelto Hypothyroidism: continue levothyroxine Continue home meds as appropriate DVt ppx on xarelto GI PROPHYLAXIS WITH PPI Patrick Hernandez DO Nov 11, 2017 09:41
[2017-11-11 10:38] LABS: HEMOGLOBIN A1C 5.4 % (4.3-6.0)
[2017-11-11] MEDS: HYOSCYAMINE SOLN 0.125 MG/ML 15 ML BTL PO PRN (11:53)
[2017-11-11] MEDS: LORazepam 1 MG TAB PO PRN (12:50)
[2017-11-11 18:58] VITALS: BP 111/55; PULSE 82; RESP 18; TEMP 98.5; O2SAT 96
[2017-11-11] MEDS: ESCITALOPRAM OXALATE 20 MG TAB PEG SCH (20:26)
[2017-11-11] MEDS: traZODone HCL 50 MG TAB PO PRN (20:26)
[2017-11-11] MEDS: REMOVE OLD NICOTINE PATCH T-DERMAL SCH (20:32)
[2017-11-12] MEDS: ceFAZolin 2 GM PREMIX 50 ML IV SCH ×2 (02:29→09:14)
[2017-11-12] MEDS: ACETAMINOPHEN/HYDROcodone 325 MG/7.5 MG TAB PO PRN ×3 (05:19→20:51)
[2017-11-12] MEDS: HYOSCYAMINE SOLN 0.125 MG/ML 15 ML BTL PO PRN (05:19)
[2017-11-12] MEDS: LEVOTHYROXINE SODIUM 100 MCG TAB PO SCH (05:19)
[2017-11-12 06:23] VITALS: BP 98/59; PULSE 58; RESP 20; TEMP 98.7; O2SAT 97
[2017-11-12] MEDS: RESP: ALBUTEROL 2.5 MG/IPRATROPIUM 0.5 MG NEB (SCH) NEB ×4 (07:59→21:41)
[2017-11-12] MEDS: NICOTINE 21 MG/24 HR PATCH T-DERMAL SCH (09:00)
[2017-11-12] MEDS: RIVAROXABAN 20 MG TAB PEG SCH (09:13)
[2017-11-12] MEDS: LANSOPRAZOLE SOLUTAB 30 MG TAB PEG SCH ×2 (09:13→20:53)
[2017-11-12] MEDS: ERGOCALCIFEROL (VIT D2) 8,000 UNITS/ML 60 ML BTL PEG SCH (09:13)
--- NOTE | 2017-11-12 11:03 | HHI.PYPN ---
Subjective Remarks This is a psychiatric progress note for November 11, 2017. Patient interviewed at bedside. Electronic medical record reviewed, including recent laboratory results. Case discussed with patient's nurse. She is resting more comfortably as respiratory therapy has been to see her and assisted with her mucous plug. Review of Systems Psychiatric: COMPLAINS OF: Anxiety Except as stated in HPI: all other systems reviewed are Neg Mental Status Examination Appearance: Appropriate Consciousness: Alert Orientation: x4 Motor Activity: Normal gait Speech: Other Language: Adequate Fund of Knowledge: Adequate Attention and Concentration: Adequate Memory: Unremarkable Mood: Anxious Affect: Anxious Thought Process & Associations: Intact Thought Content: Appropriate Hallucination Type: None Delusion Type: None Suicidal Ideation: No Suicidal Plan: No Suicidal Intention: No Homicidal Ideation: No Homicidal Plan: No Homicidal Intention: No Insight: Adequate Judgment: Adequate Results Vitals/IOs Vital Signs Date Time Temp Pulse Resp B/P (MAP) Pulse Ox O2 Delivery O2 Flow Rate FiO2 11/12/17 06:23 98.7 58 20 98/59 (72) 97 11/09/17 23:45 21 Intake and Output 11/12/17 11/12/17 11/12/17 07:59 15:59 23:59 Intake Total 0 ml 50 ml Balance 0 ml 50 ml Assessment & Plan Problem List: (1) Adjustment disorder with mixed disturbance of emotions and conduct ICD Codes: F43.25 - Adjustment disorder with mixed disturbance of emotions and conduct Assessment & Plan Estimated LOS: days. Patient's emotional outburst with homicidal threats is diminishing. With therapy, medication management, medical management, etc. her perspective is improving along with her physical health. She is still being evaluated for antidepressant therapy. Justification for Cont. Inpt. Likely to decompensate at lower level of care. Brett Higginbotham MD Nov 12, 2017 11:03
--- NOTE | 2017-11-12 11:40 | HHI.PYPN ---
Subjective Remarks Patient seen for follow-up, chart review. Discussion she staff reported the patient slept well last night continue with trach be followed by medical team. Patient is 62-year-old woman, , domiciled , , with past psychiatric history of depression treated previous he by her primary care doctor on antidepressants currently on Lexapro, no prior psychiatric consultations, no prior suicide attempts or self-injurious behavior (the Maher act by police after she had threatened to kill her during a recent argument with him. Patient was admitted to the inpatient psychiatry unit for further evaluation and management, currently of voluntary status. Patient was found lying in hospital bed with tracheostomy and PEG tube noted. Patient states that she had been treated for depression in the past which she was on Effexor 37.5 about 2 years and recently due to recent diagnosis and treatment of throat cancer was restarted on antidepressant treatment specifically Lexapro 20 mg by mouth daily for the past 2 weeks. Patient states that at the time she was feeling depressed 5 out of 10 (10 being at its worst) and today she is 3 out of 10. Patient states that antidepressant medications help a little bit but she is mostly feeling down and depressed due to not being able to eat or drink due to current tracheostomy. She reports having had suicidal ideations for the past 3-4 weeks every other day last time being 1 week ago. Patient denies any perceptual disturbances denied any homicidal ideations or delusions. When asked about her recent our unit with in which it was reported she had endorsed thoughts of wanting to kill him she denies stating that it was her that when he comes a hospital and that her did not want to take her. She then mentions that her told her that she had to leave the home and did not want her to come back. Patient reports that her visited her last evening which did not go well and during states that she wants to return back to her home. Patient reports having slept well last evening, tolerating medications well with bowel movement. Patient this time reports feeling okay, denies any SI or HI, AVH or delusions. Review of Systems Except as stated in HPI: all other systems reviewed are Neg Mental Status Examination Appearance: Appropriate Consciousness: Alert Orientation: x4 Motor Activity: Normal gait Speech: Other (as tracheostomy difficult to understand at times) Language: Adequate Fund of Knowledge: Adequate Attention and Concentration: Adequate Memory: Unremarkable Mood: Anxious Affect: Anxious Thought Process & Associations: Intact Thought Content: Appropriate Hallucination Type: None Delusion Type: None Suicidal Ideation: No Suicidal Plan: No Suicidal Intention: No Homicidal Ideation: No Homicidal Plan: No Homicidal Intention: No Insight: Adequate Judgment: Adequate Results Vitals/IOs Vital Signs Date Time Temp Pulse Resp B/P (MAP) Pulse Ox O2 Delivery O2 Flow Rate FiO2 11/12/17 06:23 98.7 58 20 98/59 (72) 97 11/09/17 23:45 21 Intake and Output 11/12/17 11/12/17 11/13/17 08:00 16:00 00:00 Intake Total 0 ml 50 ml Balance 0 ml 50 ml Assessment & Plan Problem List: (1) Adjustment disorder with mixed disturbance of emotions and conduct ICD Codes: F43.25 - Adjustment disorder with mixed disturbance of emotions and conduct Assessment & Plan Patient this time currently being for depression due to recent diagnosis of throat cancer, currently on Lexapro 20 mg by mouth daily. Continue current treatment for now. Patient at this time denies any suicide ideation, homicidal ideation, perceptual disturbances or delusions. Initial evaluation reported conflicting accounts for circumstances that brought into the hospital and denies any homicidal ideations. Collateral pending from to ascertain safe discharge as she wants to return back to her home although stating that initially did not want her to live there now. Continue recommendations from primary medical team. Discharge planning in progress Justification for Cont. Inpt. At risk for further decompensation if at lower level of care Discharge Planning To be determined Gianfranco Small MD Nov 12, 2017 11:40
--- NOTE | 2017-11-12 12:29 | HHI.PR ---
Subjective Remarks Follow-up for recent bacteremia, history of throat cancer status post tracheostomy. Patient is currently doing well. No acute concerns. She is able to communicate but not verbalize. No fever or chills. Objective Vitals Vital Signs Date Time Temp Pulse Resp B/P (MAP) Pulse Ox O2 Delivery O2 Flow Rate FiO2 11/12/17 06:23 98.7 58 20 98/59 (72) 97 11/11/17 18:58 98.5 82 18 111/55 (73) 96 I/O 11/11/17 11/11/17 11/11/17 11/12/17 11/12/17 11/12/17 07:00 15:00 23:00 07:00 15:00 23:00 Intake Total 100 ml 0 ml 50 ml Balance 100 ml 0 ml 50 ml Intake Oral 100 ml 0 ml IV Total 50 ml # Voids 2 4 Result Diagram: 11/11/17 0540 11/11/17 0540 Imaging Last Impressions Chest X-Ray 11/10/17 0000 Signed Impressions: Service Date/Time: Friday, November 10, 2017 00:29 - CONCLUSION: No acute cardiopulmonary disease identified. Lanre Bender MD Objective Remarks GENERAL: Alert, NAD. SKIN: Warm and dry. HEAD: Normocephalic. EYES: No scleral icterus. No injection or drainage. NECK: Status post tracheostomy. CARDIOVASCULAR: Regular rate and rhythm without murmurs, gallops, or rubs. RESPIRATORY: Breath sounds equal bilaterally. No accessory muscle use. GASTROINTESTINAL: Abdomen soft, non-tender, nondistended. PEG tube in place MUSCULOSKELETAL: No cyanosis, or edema. BACK: Nontender without obvious deformity. No CVA tenderness. Procedures None A/P Assessment and Plan 62-year-old female with history of throat cancer, finished chemo 6 month ago, with chronic respiratory failure has trach IN PLACE, DVT on xarelto, hypothyroidism, GERD, presents to emergency department under Maher act for psychiatric evaluation. Patient got into an argument with her . She has made threatening statements that she wants to kill . She has had this several times here in the emergency department. Patient reports chronic pain. She does have a PEG tube and trach in place. She denies suicidal ideations. She remained patently states that she wants to kill her . She does not report a plan. Denies illicit drug use. She has no acute other acute medical needs at this time. She is very pleasant at this time. Patient was noted with some secretions in the morning but able to Clear secretions. No sob, cp, n/v/d/c. Patient says she has been Recently to [facility] and was discharged home on IV abx cefazolin Q8HRS for blood infection with staph aureus. Adjustment disorder. BA. Management per psych Throat carcinoma with trach undergoing chemo last chemo was 6 month ago Chronic respiratory failure on trach Trach care Duonebs as need Levsin prn if increased secretions Bacteremia with staph aureus per patient , on cefazolin Q8hrsm started at [facility] on 11/07/17. Continue cefazolin IV. Per patient, she is supposed to continue IV abx until 11/16/2017. GERD continue PPI DVT right leg on xarelto Hypothyroidism: continue levothyroxine Continue home meds as appropriate DVt ppx on xarelto We need to find out length of IV abx treatment from recent [facility] admission. Patient needs to continue IV abx per her physicians from [facility]. Otherwise, patient can be discharged from medical standpoint. Masha Figueroa DO Nov 12, 2017 12:29 pm
[2017-11-12] MEDS: LORazepam 1 MG TAB PO PRN ×2 (13:37→20:51)
--- NOTE | 2017-11-12 17:05 | PD.TTN ---
Patient Problems 1. Discharge planning 2. Medication compliance 3. Knowledge deficit 4. Lack of coping skills Progress Toward Goals Provider Present: Dr. Geovanna Small Provider Input: 11/12/2017; patient is being assess for level of inpatient management needed Nurse(s) Present: RN Nurse(s) Input: 11/12/2017; patient is eating meals and taking her medication; very upset about inpatient status Psychiatric Counselors Present: KISHORE Urrutia Psych Therapist Input: 11/12/2017; counselor will assess patient for outpatient dc needs Group Spec/RT/OT/LIU Present: Stephane Davis OT Group Spec/RT/OT/LIU Input: 11/12/2017; patient will be assess for inpatient needs Documentation Scribe: KISHORE Urrutia Sandra LMHC Nov 12, 2017 17:05
[2017-11-12 18:00] VITALS: BP 105/53; PULSE 62; RESP 18; TEMP 97.9; O2SAT 95
[2017-11-12] MEDS: ESCITALOPRAM OXALATE 20 MG TAB PEG SCH (20:51)
[2017-11-12] MEDS: traZODone HCL 50 MG TAB PO PRN (20:52)
[2017-11-12] MEDS: REMOVE OLD NICOTINE PATCH T-DERMAL SCH (20:54)
[2017-11-13] MEDS: ceFAZolin 2 GM PREMIX 50 ML IV SCH ×3 (02:00→10:39)
[2017-11-13] MEDS: LEVOTHYROXINE SODIUM 100 MCG TAB PO SCH (06:05)
[2017-11-13 06:25] VITALS: BP 89/52; PULSE 82; RESP 16; TEMP 97.6; O2SAT 94
[2017-11-13 06:36] VITALS: BP 101/56
[2017-11-13] MEDS: RESP: ALBUTEROL 2.5 MG/IPRATROPIUM 0.5 MG NEB (SCH) NEB ×3 (07:48→16:12)
[2017-11-13] MEDS: NICOTINE 21 MG/24 HR PATCH T-DERMAL SCH (09:00)
[2017-11-13] MEDS: ACETAMINOPHEN/HYDROcodone 325 MG/7.5 MG TAB PO PRN ×2 (10:37→16:55)
[2017-11-13] MEDS: LANSOPRAZOLE SOLUTAB 30 MG TAB PEG SCH (10:38)
[2017-11-13] MEDS: RIVAROXABAN 20 MG TAB PEG SCH (10:39)
[2017-11-13] MEDS: ERGOCALCIFEROL (VIT D2) 8,000 UNITS/ML 60 ML BTL PEG SCH (10:39)
--- NOTE | 2017-11-13 11:50 | HHI.PR ---
Subjective Remarks Follow-up for recent bacteremia, history of throat cancer status post tracheostomy. Patient is doing well. No acute concerns. Records from [facility] obtained and shows that patient was recommended to continue abx until 11/16/2017. Objective Vitals Vital Signs Date Time Temp Pulse Resp B/P (MAP) Pulse Ox O2 Delivery O2 Flow Rate FiO2 11/13/17 06:36 101/56 (71) 11/13/17 06:25 97.6 82 16 89/52 (64) 94 11/12/17 18:00 97.9 62 18 105/53 (70) 95 I/O 11/12/17 11/12/17 11/12/17 11/13/17 11/13/17 11/13/17 07:00 15:00 23:00 07:00 15:00 23:00 Intake Total 0 ml 50 ml 0 ml 0 ml Balance 0 ml 50 ml 0 ml 0 ml Intake Oral 0 ml 0 ml 0 ml IV Total 50 ml # Voids 4 2 1 Result Diagram: 11/11/17 0540 11/11/17 0540 Objective Remarks GENERAL: Alert, NAD. SKIN: Warm and dry. HEAD: Normocephalic. EYES: No scleral icterus. No injection or drainage. NECK: Status post tracheostomy. CARDIOVASCULAR: Regular rate and rhythm without murmurs, gallops, or rubs. RESPIRATORY: Breath sounds equal bilaterally. No accessory muscle use. GASTROINTESTINAL: Abdomen soft, non-tender, nondistended. PEG tube in place MUSCULOSKELETAL: No cyanosis, or edema. BACK: Nontender without obvious deformity. No CVA tenderness. Procedures None A/P Assessment and Plan 62-year-old female with history of throat cancer, finished chemo 6 month ago, with chronic respiratory failure has trach IN PLACE, DVT on xarelto, hypothyroidism, GERD, presents to emergency department under Maher act for psychiatric evaluation. Patient got into an argument with her . She has made threatening statements that she wants to kill . She has had this several times here in the emergency department. Patient reports chronic pain. She does have a PEG tube and trach in place. She denies suicidal ideations. She remained patently states that she wants to kill her . She does not report a plan. Denies illicit drug use. She has no acute other acute medical needs at this time. She is very pleasant at this time. Patient was noted with some secretions in the morning but able to Clear secretions. No sob, cp, n/v/d/c. Patient says she has been Recently to [facility] and was discharged home on IV abx cefazolin Q8HRS for blood infection with staph aureus. Adjustment disorder. BA. Management per psych Throat carcinoma with trach undergoing chemo last chemo was 6 month ago Chronic respiratory failure on trach Trach care Duonebs as need Levsin prn if increased secretions Bacteremia with staph aureus per patient , on cefazolin Q8hrsm started at [facility] on 11/07/17. Continue cefazolin IV. Per patient, she is supposed to continue IV abx until 11/16/2017. GERD continue PPI DVT right leg on xarelto Hypothyroidism: continue levothyroxine Continue home meds as appropriate DVt ppx on xarelto Patient can be discharged home and continue abx per [facility] recs. Masha Figueroa DO Nov 13, 2017 11:50
[2017-11-13] MEDS: LORazepam 1 MG TAB PO PRN (12:23)
[2017-11-13] MEDS ORDERED: HYOS0.1231 PO (13:59)
[2017-11-13] MEDS ORDERED: XARE20TA PEG (13:59)
[2017-11-13] MEDS ORDERED: ESCI20TA PEG (13:59)
[2017-11-13] MEDS ORDERED: TRAZ50TA12 PO (13:59)
--- NOTE | 2017-11-13 14:05 | HHI.DS ---
Psychiatry Discharge Summary Inpatient Psychiatric care?: Yes Advance Directive: No Reason Not Provided: education provided Mental Health AdvanceDirective: No Health Care Proxy: No Admission Admission Date Nov 10, 2017 at 02:59 Admission Diagnosis: (1) Adjustment disorder with mixed disturbance of emotions and conduct ICD Code: F43.25 - Adjustment disorder with mixed disturbance of emotions and conduct Brief History 62-year-old female inappropriately Maher acted by police after allegedly making threats to kill her . Patient recently underwent treatment for throat cancer. She has a tracheostomy and a plugged in her throat, with increasing secretions and possible infection. reportedly wanted the patient to come to the hospital yesterday and it patient did not want to. reportedly told her to "hit the fuck out" of their house. Patient reportedly told him "Fucks you". She may have told him she felt like killing him but she is basically unable to speak because of her tracheostomy. called the police who handcuffed her, Maher acted her while she was sitting watching television. At this time she denies any suicidal or homicidal ideation, plan or intent. She has no psychotic symptoms and no cognitive deficits. She is verbally sherita for safety. She is willing to be treated by the physical medicine doctors. She does not meet criteria for Maher act and she was allowed by this physician to sign in voluntarily. Tobacco Use In Past 30 Days: No Tobacco Past 30 Days Alcohol Use: Never Hospital Course Patient is 62-year-old woman, , domiciled , , with past psychiatric history of depression treated previous he by her primary care doctor on antidepressants currently on Lexapro, no prior psychiatric consultations, no prior suicide attempts or self-injurious behavior (the Maher act by police after she had threatened to kill her during a recent argument with him. Patient was admitted to the inpatient psychiatry unit for further evaluation and management Patient was continued on escitalopram 20mg PO daily, remained on recent medication regimen for current medical issues as managed by primary medical team. Patient was noted to have felt depressed with recent argument with with initially continual discord but throughout admission were they were able to reconcile. She denied any further depressive symptoms and had stable mood on current regimen. She had improvement of mood, stable mood and not endorsing any homicidal ideation since admission. Patient noted to have stable mood throughout admission, noted to have adequate self hygiene maintenance with no behavioral disturbances. Upon discharge patient stated feeling good, stated wanting to continue to improve and return back to residence with . She reports planning on continuing treatment and attend outpatient follow up appointments for continuity of care. Patient will require follow up with her outpatient medical providers for current medical issues. Patient will be discharged back to her residence. Patient; denies SI, HI, AVH or delusions. Supportive psychotherapy provided. Patient advised to call 911 or return back to the ED in case of any emergency. Patient agrees with plan. Results Blood Pressure 101 / 56 Vital Signs Date Time Temp Pulse Resp B/P (MAP) Pulse Ox O2 Delivery O2 Flow Rate FiO2 11/13/17 06:36 101/56 (71) 11/13/17 06:25 97.6 82 16 94 11/09/17 23:45 21 Laboratory Tests Test 11/11/17 05:40 White Blood Count 3.8 TH/MM3 (4.0-11.0) Red Blood Count 3.57 MIL/MM3 (4.00-5.30) Hemoglobin 9.8 GM/DL (11.6-15.3) Hematocrit 29.0 % (35.0-46.0) Monocytes (%) (Auto) 11.8 % (0.0-8.0) Eosinophils (%) (Auto) 7.4 % (0.0-4.0) Lymphocytes # (Auto) 0.8 TH/MM3 (1.0-4.8) Chloride Level 111 MEQ/L (98-107) HDL Cholesterol 32.4 MG/DL (40.0-60.0) Thyroid Stimulating Hormone 3rd Gen 0.055 uIU/ML (0.358-3.740) Laboratory Results Test 11/11/17 05:40 Cholesterol Level 147 MG/DL (120-200) HDL Cholesterol 32.4 MG/DL (40.0-60.0) Hemoglobin A1c 5.4 % (4.3-6.0) LDL Cholesterol 95 MG/DL (0-99) Triglycerides Level 96 MG/DL (42-150) Summary of Procedures none Imaging Last Impressions Chest X-Ray 11/10/17 0000 Signed Impressions: Service Date/Time: Friday, November 10, 2017 00:29 - CONCLUSION: No acute cardiopulmonary disease identified. Lanre Bender MD Pending results at discharge: No Medications # of Antipsychotic meds at D/C: 0 Approp Antipsych med options 1 - Minimum of three failed multiple trials of monotherapy. 2 - Documented plan to taper to monotherapy due to previous use of multiple meds OR cross-taper in progress at D/C. 3 - Documentation of augmentation of Clozapine. 4 - Justification other than those listed in allowable values 1-3, document here : Discharge Discharge Date: Nov 13, 2017 Discharge Diagnosis: (1) Adjustment disorder with mixed disturbance of emotions and conduct ICD Code: F43.25 - Adjustment disorder with mixed disturbance of emotions and conduct Pt Condition on Discharge: Stable Discharge Disposition: Discharge Home Discharge Instructions Diet Instructions: Heart Healthy Diet Activities you can perform: Regular-No Restrictions Discharge Time > 30 minutes Mental Status Examination Appearance: Appropriate Consciousness: Alert Orientation: x4 Motor Activity: Normal gait Speech: Other (as tracheostomy difficult to understand at times) Language: Adequate Fund of Knowledge: Adequate Attention and Concentration: Adequate Memory: Unremarkable Mood: Appropriate Affect: Appropriate Thought Process & Associations: Intact Thought Content: Appropriate Hallucination Type: None Delusion Type: None Suicidal Ideation: No Suicidal Plan: No Suicidal Intention: No Homicidal Ideation: No Homicidal Plan: No Homicidal Intention: No Insight: Adequate Judgment: Adequate Discharge/Advance Care Plan Health Problems: (1) Adjustment disorder with mixed disturbance of emotions and conduct Goals to promote your health * To prevent worsening of your condition and complications * To maintain your health at the optimal level Directions to meet your goals Take your medications as prescribed Follow your dietary instruction Follow activity as directed Keep your appointments as scheduled Take your immunizations and boosters as scheduled If your symptoms worsen call your PCP, if no PCP go to Urgent Care Center or Emergency Room For 28/05 questions related to your inpatient stay or results of tests pending at discharge, please contact Dr. Gianfranco Small at Smoking is Dangerous to Your Health. Avoid second hand smoking Gianfranco Small MD Nov 13, 2017 14:05
== END 2017-11-13 19:35 | disposition home or self-care (01) | DRG 882 ==
LOC: NEPD 22:58 → NEDA 11-10 02:59 → H4EA 11-10 03:20
PROVIDERS: ADMIT Student in an Organized Health Care Education/Training Program; ATTEND Student in an Organized Health Care Education/Training Program
DX: F43.25 Adjustment disorder with mixed disturbance of emotions and conduct (principal); J96.10 Chronic respiratory failure, unspecified whether with hypoxia or hypercapnia; R78.81 Bacteremia; K21.9 Gastro-esophageal reflux disease without esophagitis; E03.9 Hypothyroidism, unspecified; J98.09 Other diseases of bronchus, not elsewhere classified; R45.850 Homicidal ideations; F32.9 Major depressive disorder, single episode, unspecified; Z79.01 Long term (current) use of anticoagulants; Z85.819 Personal history of malignant neoplasm of unspecified site of lip, oral cavity, and pharynx; Z86.718 Personal history of other venous thrombosis and embolism; Z87.891 Personal history of nicotine dependence; Z88.0 Allergy status to penicillin; Z92.21 Personal history of antineoplastic chemotherapy; Z93.0 Tracheostomy status; Z93.1 Gastrostomy status
CPT/HCPCS: 71045; 80048; 80061; 80307; 83036; 84443; 85025; 94640; 94664; 99285; J0690; Q0163